=== PATIENT | female | born 1985 | race Two or more races ===

== ENCOUNTER → 2025-03-22 | Outpatient (CLI) | payer BC, SELFPAY ==
[2025-03-22 08:42] LABS: Basophils # (Auto) 0.0 Thou/mm3 (0.0-0.2); Basophils % (Auto) 0 % (0-2.5); Eosinophils # (Auto) 0.2 Thou/mm3 (0.0-0.5); Eosinophils % (Auto) 2 % (0-10); Hematocrit 27.2 % (36.0-46.0); Immature Granulocytes Auto 0.04 Thou/mm3 (0.00-0.00); Lymphocytes # (Auto) 2.5 Thou/mm3 (1.0-4.8); Lymphocytes % (Auto) 26 % (10-50); Mean Corpuscular HGB Conc 26.1 g/dl (31.0-37.0); Mean Corpuscular Hemoglobin 15.8 pg (25.0-35.0); Mean Corpuscular Volume 60 fL (80-100); Monocytes # (Auto) 0.6 Thou/mm3 (0.0-0.8); Monocytes % (Auto) 6 % (0-12); Neutrophils # (Auto) 6.3 Thou/mm3 (1.8-7.7); Neutrophils % (Auto) 66 % (37-80); Nucleated Red Blood Cell # 0.03 Thou/mm3 (0.00-0.00); Nucleated Red Blood Cell % 0 /100 WBC (0); Platelet Count 430 Thou/mm3 (140-440); RDW Standard Deviation 46.9 fL (36.4-46.3); Red Blood Count 4.50 Miln/mm3 (4.00-5.20); White Blood Count 9.6 Thou/mm3 (3.6-11.0)
[2025-03-22 08:43] LABS: Hemoglobin 7.1 g/dL (12.0-16.0)
[2025-03-22 08:47] LABS: Glucose Estimated Average 108 mg/dL (80-131); Hemoglobin A1C 5.4 % Hgb (4.8-6.0)
[2025-03-22 08:50] LABS: Iron 13 mcg/dL (50-170); Percent Iron Saturation 3 % (20-55); Total Iron Binding Capacity 417 mcg/dL (250-425); Unsaturated Iron Binding 404 (225-295)
[2025-03-22 08:55] LABS: Vitamin B12 766 pg/mL (211-911); Vitamin D 25 Hydroxy Total 27.4 ng/mL (7.3-40.2)
[2025-03-22 08:57] LABS: Alanine Aminotransferase 18 U/L (10-49); Albumin, Serum 4.1 gm/dL (3.5-5.0); Albumin/Globulin Ratio 1.2 (1.2-2.2); Alkaline Phosphatase 101 U/L (46-116); Anion Gap 8 (7-16); Aspartate Amino Transferase 15 U/L (0-34); BUN/Creatinine Ratio 9 Ratio (12-20); Bilirubin,Total 0.3 mg/dL (0.3-1.2); Blood Urea Nitrogen 6 mg/dL (9-23); Calcium 8.7 mg/dL (8.3-10.6); Calcium (Corrected) 8.7 mg/dL (8.5-10.1); Carbon Dioxide 26.0 mMol/L (20.0-31.0); Cardiac Risk Estimate 4.0 RATIO (3.7-5.6); Chloride 107 mMol/L (98-107); Cholesterol 165 mg/dL (132-200); Creatinine (Component) 0.7 mg/dL (0.6-1.3); Globulin 3.3 gm/dL (2.3-3.5); Glucose 94 mg/dL (74-106); HDL Cholesterol 41 mg/dL (40-60); LDL Cholesterol,Calculated 80 mg/dL (0-130); Osmolality,Calculated 278 (275-295); Potassium 3.9 mMol/L (3.4-5.1); Sodium 141 mMol/L (136-145); Thyroid Stimulating Hormone 0.95 uIU/mL (0.55-4.78); Total Protein 7.4 gm/dL (5.7-8.2); Triglycerides 219 mg/dL (30-150); eGFR > 60 See Note
== END | disposition home or self-care (01) ==
PROVIDERS: PCP Family Medicine; Referring Provider Nurse Practitioner Family; Visit Provider Nurse Practitioner Family
DX: Z00.00 Encounter for general adult medical examination without abnormal findings (principal); F33.1 Major depressive disorder, recurrent, moderate; F41.3 Other mixed anxiety disorders
CPT/HCPCS: 36415; 80053; 80061; 81001; 82306; 82607; 83036; 83540; 83550; 84443; 85025

== ENCOUNTER 2025-04-06 00:57 | Emergency (ER) | payer BC, SELFPAY ==
[2025-04-06 00:57] VITALS: BMI 34.7
[2025-04-06 01:09] VITALS: BP 154/97; PULSE 84; RESP 20; TEMP 36.7; O2SAT 98
--- NOTE | 2025-04-06 01:17 | PD.EDRME ---
Rapid Medical Screening Exam [facility] Arrival date/time: 04/06/25 00:57 40F with history of blood transfusion yesterday presents to ED with THAYER, N/V, dizziness, and some non-bloody diarrhea. Chief Complaint: General Adult/Misc Complain Vital signs: Vital Signs Temperature 98.1 F 04/06/25 01:09 Pulse Rate 84 04/06/25 01:09 Respiratory Rate 20 04/06/25 01:09 Blood Pressure 154/97 H 04/06/25 01:09 Pulse Oximetry (%) 98 04/06/25 01:09 Oxygen Delivery Method Room Air 04/06/25 01:09
[2025-04-06] MEDS: ONDANSETRON ODT 4 MG TABRAP PO (01:30)
[2025-04-06 01:36] LABS: Basophils # (Auto) 0.1 Thou/mm3 (0.0-0.2); Basophils % (Auto) 1 % (0-2.5); Eosinophils # (Auto) 0.1 Thou/mm3 (0.0-0.5); Eosinophils % (Auto) 1 % (0-10); Hematocrit 32.9 % (36.0-46.0); Hemoglobin 9.1 g/dL (12.0-16.0); Immature Granulocytes Auto 0.04 Thou/mm3 (0.00-0.00); Lymphocytes # (Auto) 3.2 Thou/mm3 (1.0-4.8); Lymphocytes % (Auto) 31 % (10-50); Mean Corpuscular HGB Conc 27.7 g/dl (31.0-37.0); Mean Corpuscular Hemoglobin 18.0 pg (25.0-35.0); Mean Corpuscular Volume 65 fL (80-100); Monocytes # (Auto) 0.7 Thou/mm3 (0.0-0.8); Monocytes % (Auto) 7 % (0-12); Neutrophils # (Auto) 6.3 Thou/mm3 (1.8-7.7); Neutrophils % (Auto) 60 % (37-80); Nucleated Red Blood Cell # 0.03 Thou/mm3 (0.00-0.00); Nucleated Red Blood Cell % 0 /100 WBC (0); Platelet Count 423 Thou/mm3 (140-440); RDW Standard Deviation 58.6 fL (36.4-46.3); Red Blood Count 5.06 Miln/mm3 (4.00-5.20); White Blood Count 10.5 Thou/mm3 (3.6-11.0)
[2025-04-06] MEDS: MECLIZINE HCL 25 MG TABLET PO (01:42)
--- NOTE | 2025-04-06 01:47 | PD.EDADULT ---
ED General RME/HPI General Chief complaint: General Adult/Misc Complain Stated complaint: NAUSEA, HEADACHE Time Seen by Provider: 04/06/25 01:47 Arrival date/time: 04/06/25 00:57 RME / HPI RME / HPI narrative: 04/06/25 00:57 40F with history of blood transfusion yesterday presents to ED with THAYER, N/V, dizziness, and some non-bloody diarrhea. -------- Dr. Monsivais?s Main ED Evaluation: 40yo female presents to the ED for complaints of N/V/D and dizziness. Patient states she received 2 units of blood yesterday and has since had N/V/D and dizziness. Patient denies any falls or injuries. She denies any melena, hematemesis, or any other associated symptoms. Patient does have heavy periods. NKA. Related Data Home Medications ?Medication ?Instructions ?Recorded ?Confirmed alprazolam 0.25 mg tablet 0.5 mg PO BID 04/05/25 04/05/25 bupropion HCl 100 mg tablet 100 mg PO QDAY 04/05/25 04/05/25 sertraline 50 mg tablet 100 mg PO QDAY 04/05/25 04/05/25 trazodone 50 mg tablet 50 mg PO HS 04/05/25 04/05/25 Allergies Allergy/AdvReac Type Severity Reaction Status Date / Time No Known Allergies Allergy Unverified 04/05/25 07:57 Review of Systems Review of Systems Systems Reviewed: All systems reviewed, normal except as documented Past Medical History Past Medical History NEUROLOGIC: Negative Neurological Disorders or Seizures CARDIAC: Negative Cardiac Disorders or Congestive Heart Failure RESPIRATORY: Negative Chronic Obstructive Pulmonary Disease (COPD) GASTROINTESTINAL: Negative Gastrointestinal Disorders GENITOURINARY: Positive Genitourinary Disorders and Kidney Stones; Negative Renal Disease MUSCULOSKELETAL: Negative Musculoskeletal Disorders ENDOCRINE: Negative Endocrine Disorders, Diabetes Mellitus Type 1 or Diabetes Mellitus Type 2 HEMATOLOGIC: Positive Blood Disorders and Anemia PSYCHO/SOCIAL: Positive Depression and Anxiety OTHER HISTORY: Negative Blood Transfusions or Cancer Family History FAMILY HISTORY: Positive Family Cardiac Disorders (Mother had heart valves replaced) Social History SMOKING STATUS: Never smoker ED Exam Narrative Physical exam: Generally patient is alert in no obvious distress, heart regular rate and rhythm, lungs clear to auscultation equal bilaterally, abdomen soft bowel sounds present nondistended nontender, neurologic exam showed no focal deficits. No ataxia. Rosine Coma Scale 15, skin is warm pale and dry Course Quality Measures none Orders Category Date Time Status CBC Stat Lab 04/06/25 01:20 Completed CMP [Comprehensive Metabolic Panel] Stat Lab 04/06/25 01:20 Completed Meclizine HCl [Antivert] Med 04/06/25 01:17 Discontinued 25 mg PO X1 ONE Ondansetron Odt [Zofran Odt] Med 04/06/25 01:17 Discontinued 4 mg PO X1 ONE Vital Signs Vital signs: Vital Signs Temperature 98.1 F 04/06/25 01:09 Pulse Rate 84 04/06/25 01:09 Respiratory Rate 20 04/06/25 01:09 Blood Pressure 154/97 H 04/06/25 01:09 Pulse Oximetry (%) 98 04/06/25 01:09 Oxygen Delivery Method Room Air 04/06/25 01:09 Discharge Plan Plan Patient Disposition: HOME (Self Care) Prescriptions/Referrals Prescriptions/Med Rec: No Action alprazolam 0.25 mg tablet 0.5 mg PO BID Patient Comments: TAKE 1 TABLET BY MOUTH ONCE DAILY BEFORE BED NEEDED FOR 30 DAYS trazodone 50 mg tablet 50 mg PO HS bupropion HCl 100 mg tablet 100 mg PO QDAY Patient Comments: TAKE 1 TABLET BY MOUTH ONCE DAILY sertraline 50 mg tablet 100 mg PO QDAY Referrals: No Primary/Family,Physician [Primary Care Provider] - In 1 week Problem List Clinical Impression: Dizziness, Vomiting, Diarrhea Patient/Caregiver Discharge Instructions Education Materials: ED Diarrhea, Unknown Cause, ED Vomiting (Adult) Additional Instructions: Keep well-hydrated. There is no blood abnormality at this time. Follow-up with your doctor. Return to ER as needed or if condition worsens. Print Language: German Stand Alone Forms: [employer] Award Info., Patient Portal Info Letter MDM Narrative MDM hospital course (for use when minimal MDM required): Scribe Attestation: 04/06/25 Giovanna Singh am scribing for and in the presence of Dr. Monsivais. I interpreted all labs. Hemoglobin is 9.1. There is no electrolyte abnormality. Patient does not want anything for her nausea. Patient will be discharged in stable condition. Clinical Information Provided by: patient Medical Records reviewed [facility] (Per chart review, patient has no relevant previous ED visits.) Meds/Rx considered, not ordered None Labs/Rad/Tests considered, not ordered None Chronic Illness/Social Conditions which may negatively complicate care or outcome(s)-explain: None or not applicable EKG EKG not done Labs Labs: interpreted by me Medication Administration(s) Medication Administration History Discontinued Medications Meclizine HCl (Meclizine Hcl 25 Mg Tablet) 25 mg PO X1 ONE Stop: 04/06/25 01:18 Last Admin: 04/06/25 01:42 Dose: 25 mg Documented By: ROLAND Ondansetron HCl (Ondansetron Odt 4 Mg Tabrap) 4 mg PO X1 ONE; Protocol Stop: 04/06/25 01:18 Last Admin: 04/06/25 01:30 Dose: 4 mg Documented By: ROLAND see above Diagnosis Differential Diagnosis ED Complaint MDM: See MDM.
[2025-04-06 01:49] LABS: Alanine Aminotransferase 18 U/L (10-49); Albumin, Serum 4.1 gm/dL (3.5-5.0); Albumin/Globulin Ratio 1.9 (1.2-2.2); Alkaline Phosphatase 105 U/L (46-116); Anion Gap 9 (7-16); Aspartate Amino Transferase 16 U/L (0-34); BUN/Creatinine Ratio 8 Ratio (12-20); Bilirubin,Total 0.3 mg/dL (0.3-1.2); Blood Urea Nitrogen 6 mg/dL (9-23); Calcium 9.3 mg/dL (8.3-10.6); Calcium (Corrected) 9.3 mg/dL (8.5-10.1); Carbon Dioxide 25.1 mMol/L (20.0-31.0); Chloride 106 mMol/L (98-107); Creatinine (Component) 0.8 mg/dL (0.6-1.3); Estimated Creatinine Clearance 93.3 mL/min (>60); Globulin 2.2 gm/dL (2.3-3.5); Glucose 105 mg/dL (74-106); Osmolality,Calculated 277 (275-295); Potassium 3.9 mMol/L (3.4-5.1); Sodium 140 mMol/L (136-145); Total Protein 6.3 gm/dL (5.7-8.2); eGFR > 60 See Note
[2025-04-06 02:37] VITALS: BP 144/91; PULSE 78; RESP 18; TEMP 36.9; O2SAT 98
--- NOTE | 2025-04-06 02:47 | PC.NURSE ---
WE HAD DOWN TIME FROM [id number].
[2025-04-06 03:03] VITALS: BP 140/85; PULSE 86; RESP 14; TEMP 37; O2SAT 99
== END 2025-04-06 03:04 | disposition home or self-care (01) ==
PROVIDERS: Physician Assistant; Emergency Provider Emergency Medicine
DX: R42 Dizziness and giddiness (principal); R11.2 Nausea with vomiting, unspecified; R19.7 Diarrhea, unspecified
CPT/HCPCS: 36415; 80053; 85025; 99283; Q0162; A9270